=== PATIENT | male | born 1985 | race Caucasian/White ===

== ENCOUNTER 2022-02-05 21:55 | Emergency (ER) | payer BC ==
[~2022-02-05] VITALS: Ht 177.8 cm; Wt 86.2 kg
[~2022-02-05 21:55] MED LIST: OXYC30TA2 PO
--- NOTE | 2022-02-05 22:14 | NUR ---
Dr Tierney at bedside, MSE in progress.
[2022-02-05] MEDS ORDERED: AZITHROMYCIN 250 MG TABLET ONE (22:26)
[2022-02-05] MEDS ORDERED: CEFTRIAXONE 500 MG VIAL ONE (22:26)
[2022-02-05] MEDS ORDERED: ONDANSETRON ODT 4 MG TAB.RAPDIS ONE (22:26)
[2022-02-05] MEDS ORDERED: PENICILLIN G BENZATHINE 2.4 MMU/4 ML DISP.SYRIN IM ONE ×2 (22:27→22:30)
[2022-02-05] MEDS ORDERED: SULFAMETH/TRIMETH 800/160 MG TABLET ONE (22:27)
[2022-02-05] MEDS ORDERED: LIDOCAINE HCL 1% 20 ML VIAL ONE (22:28)
[2022-02-05] MEDS ORDERED: ONDANSETRON ODT 4 MG TAB.RAPDIS SL ONE (22:30)
[2022-02-05] MEDS ORDERED: AZITHROMYCIN 250 MG TABLET PO ONE (22:30)
[2022-02-05] MEDS ORDERED: SULFAMETH/TRIMETH 800/160 MG TABLET PO ONE (22:30)
[2022-02-05] MEDS ORDERED: CEFTRIAXONE 500 MG VIAL IM ONE (22:30)
[2022-02-05] MEDS ORDERED: SULF1TAB48 PO (22:34)
--- NOTE | 2022-02-05 22:56 | NUR ---
Patient discharged to home in stable condition. Written and verbal after care instructions given. Patient verbalizes understanding of instructions. Stressed follow up or return to ER for worsening s/s. pt ambulated with steady gait. denies pain. no SOB. no chest pain. AOx4
[2022-02-05 22:57] VITALS: BP 142/97
== END 2022-02-05 22:57 | disposition home or self-care (01) ==
LOC: ER 21:57
DX: J01.90 Acute sinusitis, unspecified (principal); G89.4 Chronic pain syndrome; K08.89 Other specified disorders of teeth and supporting structures; Z20.2 Contact with and (suspected) exposure to infections with a predominantly sexual mode of transmission; F11.20 Opioid dependence, uncomplicated; R03.0 Elevated blood-pressure reading, without diagnosis of hypertension
CPT/HCPCS: 96372 ×2; 99284; J0561; J0696; J3490; A4663; Q0144; Q0162

== ENCOUNTER 2022-08-08 23:44 | Emergency (ER) | payer BC ==
[~2022-08-08] VITALS: Ht 175.3 cm; Wt 86.2 kg
[~2022-08-08 23:44] MED LIST changes: +SULF1TAB48 PO
[2022-08-09 00:41] VITALS: BP 120/81
--- NOTE | 2022-08-09 00:41 | NUR ---
Patient discharged to home in stable condition. Written and verbal after care instructions given. Patient verbalizes understanding of instructions. Stressed follow up or return to ER for worsening s/s. Patient is a/ox4, NAD noted, able to walk with steady gait
[2022-08-11 07:06] LABS: *GC NAA Negative (Negative)
[2022-08-11 08:06] LABS: *TRIC.VAG. NAA Negative (Negative)
== END 2022-08-09 00:42 | disposition home or self-care (01) ==
LOC: ER 23:50
DX: Z20.2 Contact with and (suspected) exposure to infections with a predominantly sexual mode of transmission (principal); G89.29 Other chronic pain; F11.20 Opioid dependence, uncomplicated
CPT/HCPCS: 87491; A4663

== ENCOUNTER 2023-05-17 13:51 | Emergency (ER) | payer BC, MEDICAID ==
[~2023-05-17] VITALS: Ht 175.3 cm; Wt 86.2 kg
[2023-05-17 14:00] VITALS: O2SAT 97
[2023-05-17] MEDS ORDERED: TETRACAINE HCL 0.5% OPHT DROP 2 ML BOTTLE ONE (14:03)
[2023-05-17] MEDS ORDERED: FLUORESCEIN SODIUM 1 MG STRIP ONE (14:04)
[2023-05-17] MEDS ORDERED: OFLO5DRO3 LEFTEYE (14:10)
[2023-05-17] MEDS ORDERED: TETRACAINE HCL 0.5% OPHT DROP 2 ML BOTTLE OP ONE (14:15)
[2023-05-17] MEDS ORDERED: FLUORESCEIN SODIUM 1 MG STRIP OP ONE (14:15)
== END 2023-05-17 14:29 | disposition home or self-care (01) ==
LOC: ER 13:56
DX: S05.02XA Injury of conjunctiva and corneal abrasion without foreign body, left eye, initial encounter (principal); G89.29 Other chronic pain; Z79.899 Other long term (current) drug therapy; X58.XXXA Exposure to other specified factors, initial encounter; Y93.89 Activity, other specified; Y92.89 Other specified places as the place of occurrence of the external cause; Y99.8 Other external cause status
CPT/HCPCS: A4663

== ENCOUNTER 2023-05-19 20:16 | Emergency (ER) | payer MEDICAID ==
[~2023-05-19] VITALS: Ht 180.3 cm; Wt 86.2 kg
[~2023-05-19 20:16] MED LIST changes: +OFLO5DRO3 LEFTEYE
[2023-05-19] MEDS ORDERED: TETRACAINE HCL 0.5% OPHT DROP 2 ML BOTTLE OP ONE (20:45)
[2023-05-19] MEDS ORDERED: FLUORESCEIN SODIUM 1 MG STRIP OP ONE (20:45)
[2023-05-20 00:16] VITALS: BP 121/71; TEMP 98; O2SAT 98
== END 2023-05-19 22:00 | disposition home or self-care (01) ==
LOC: ER 20:16
DX: S05.02XA Injury of conjunctiva and corneal abrasion without foreign body, left eye, initial encounter (principal); H10.9 Unspecified conjunctivitis; Z79.899 Other long term (current) drug therapy; X58.XXXA Exposure to other specified factors, initial encounter; Y93.89 Activity, other specified; Y92.89 Other specified places as the place of occurrence of the external cause; Y99.8 Other external cause status
CPT/HCPCS: A4663

== ENCOUNTER 2024-09-18 19:32 | Emergency (ER) | payer MEDICAID, OTHER ==
[~2024-09-18] VITALS: Ht 180.3 cm; Wt 86.2 kg
[2024-09-18 20:09] LABS: *BILIRUBIN,URIN NEGATIVE (NEGATIVE); *BLOOD, URINE NEGATIVE (NEGATIVE); *CLARITY,URINE CLEAR (CLEAR); *COLOR,URINE YELLOW (YELLOW); *KETONES,URINE NEGATIVE (NEGATIVE); *PROTEIN,URINE NEGATIVE (NEGATIVE); *UROBILINOGEN,URINE 0.2 E.U./dl (NORMAL); LEUKOCYTE ESTERASE ,URINE NEGATIVE (NEGATIVE); NITRITE, URINE NEGATIVE (NEGATIVE); UGLUCOSE NEGATIVE (NEGATIVE)
[2024-09-18] MEDS ORDERED: DOXY100T2 PO (20:50)
[2024-09-18] MEDS ORDERED: LIDOCAINE HCL 1% 20 ML VIAL ONE (20:53)
[2024-09-18] MEDS ORDERED: DOXYCYCLINE HYCLATE 100 MG TABLET ONE (20:53)
[2024-09-18] MEDS ORDERED: METRONIDAZOLE 500 MG TABLET ONE (20:54)
[2024-09-18] MEDS ORDERED: CEFTRIAXONE 500 MG VIAL ONE (20:54)
[2024-09-18] MEDS: DOXYCYCLINE HYCLATE 100 MG TABLET PO ONE (21:01)
[2024-09-18] MEDS: METRONIDAZOLE 500 MG TABLET PO ONE (21:01)
[2024-09-18] MEDS: CEFTRIAXONE 500 MG VIAL IM ONE (21:01)
[2024-09-18 21:02] VITALS: BP 136/92; O2SAT 97
== END 2024-09-18 21:02 | disposition home or self-care (01) ==
LOC: ER 19:32
DX: N34.2 Other urethritis (principal); F12.90 Cannabis use, unspecified, uncomplicated; Z60.2 Problems related to living alone
CPT/HCPCS: 99283; 81003; 96372; J0696; J3490; A4606; A4663

== ENCOUNTER 2025-05-10 00:05 | Emergency (ER) | payer MEDICAID ==
[~2025-05-10] VITALS: Ht 180.3 cm; Wt 86.2 kg
[~2025-05-10 00:05] MED LIST changes: +DOXY100T2 PO; +LEVO500T90 PO
[2025-05-10 00:09] VITALS: BP 122/77
[2025-05-10] MEDS ORDERED: CEFTRIAXONE 500 MG VIAL ONE (00:22)
[2025-05-10] MEDS ORDERED: DOXYCYCLINE HYCLATE 100 MG TABLET ONE (00:22)
[2025-05-10] MEDS: DOXYCYCLINE HYCLATE 100 MG TABLET PO ONE (00:29)
[2025-05-10] MEDS: CEFTRIAXONE 500 MG VIAL IM ONE (00:29)
[2025-05-10] MEDS ORDERED: DOXY100C5 PO (00:40)
[2025-05-10 00:41] LABS: *BILIRUBIN,URIN NEGATIVE (NEGATIVE); *BLOOD, URINE NEGATIVE (NEGATIVE); *CLARITY,URINE CLEAR (CLEAR); *COLOR,URINE YELLOW (YELLOW); *KETONES,URINE NEGATIVE (NEGATIVE); *PROTEIN,URINE NEGATIVE (NEGATIVE); *UROBILINOGEN,URINE 0.2 E.U./dl (NORMAL); LEUKOCYTE ESTERASE ,URINE NEGATIVE (NEGATIVE); NITRITE, URINE NEGATIVE (NEGATIVE); UGLUCOSE NEGATIVE (NEGATIVE)
[2025-05-10 00:47] VITALS: BP 122/77; TEMP 98; O2SAT 98
[2025-05-12 02:06] LABS: CHLAMYDIA TRACHOMATIS NAA Negative (Negative); NEISSERIA GONORRHOEAE NAA Negative (Negative)
== END 2025-05-10 00:48 | disposition home or self-care (01) ==
LOC: ER 00:19
DX: N34.2 Other urethritis (principal); F11.20 Opioid dependence, uncomplicated; G89.29 Other chronic pain; Z20.2 Contact with and (suspected) exposure to infections with a predominantly sexual mode of transmission; Z60.2 Problems related to living alone
CPT/HCPCS: 99283; 81003; 96372; 87491; 87591; J0696; A4606; A4663

== ENCOUNTER 2025-05-31 23:29 | Emergency (ER) | payer MEDICAID ==
[~2025-05-31] VITALS: Ht 180.3 cm; Wt 86.2 kg
[~2025-05-31 23:29] MED LIST changes: +DOXY100C5 PO
[2025-05-31 23:42] VITALS: BP 137/81
[2025-06-01 00:25] LABS: PLATELET COUNT (AUTO) 205 K/uL (152-348); RED BLOOD CELL COUNT(AUTO) 5.07 MIL/uL (4.06-5.63); RED CELL DISTRIBUTION WIDTH 13.9 % (12.1-16.2); WHITE BLOOD COUNT (AUTO) 6.1 K/uL (3.6-10.2)
[2025-06-01 00:31] LABS: CREATININE 1.0 mg/dL (0.6-1.3); SODIUM SERUM 138.0 mmol/L (136-145); UREA NITROGEN, BLOOD 10.0 mg/dL (7-18)
[2025-06-01 00:36] LABS: ASPARTATE AMINOTRANSFERASE 11.0 U/L (15-37); TOTAL PROTEIN, SERUM 7.6 g/dL (6.4-8.2)
[2025-06-01 01:29] LABS: *BILIRUBIN,URIN 1+ (NEGATIVE); *BLOOD, URINE NEGATIVE (NEGATIVE); *CLARITY,URINE CLEAR (CLEAR); *COLOR,URINE YELLOW (YELLOW); *KETONES,URINE 1+ (NEGATIVE); *PROTEIN,URINE NEGATIVE (NEGATIVE); *UROBILINOGEN,URINE 0.2 E.U./dl (NORMAL); LEUKOCYTE ESTERASE ,URINE NEGATIVE (NEGATIVE); NITRITE, URINE NEGATIVE (NEGATIVE); UGLUCOSE NEGATIVE (NEGATIVE)
[2025-06-01] MEDS ORDERED: PHEN-705 PO (01:43)
[2025-06-01] MEDS ORDERED: AZITHROMYCIN 250 MG TABLET ONE (01:48)
[2025-06-01] MEDS ORDERED: CEFTRIAXONE 500 MG VIAL ONE (01:49)
[2025-06-01] MEDS: CEFTRIAXONE 500 MG VIAL IM ONE (01:58)
[2025-06-01] MEDS: AZITHROMYCIN 250 MG TABLET PO ONE (01:58)
[2025-06-01] MEDS ORDERED: ONDANSETRON ODT 4 MG TAB.RAPDIS ONE (02:05)
[2025-06-01] MEDS: ONDANSETRON ODT 4 MG TAB.RAPDIS SL ONE (02:09)
[2025-06-01 03:15] VITALS: BP 133/80; O2SAT 99
[2025-06-02 16:07] LABS: *CHLAMYDIA NAA Negative (Negative); *GC NAA Negative (Negative); *TRIC.VAG. NAA Negative (Negative)
== END 2025-06-01 02:06 | disposition home or self-care (01) ==
LOC: ER 23:44
DX: N34.2 Other urethritis (principal); G89.29 Other chronic pain; F11.20 Opioid dependence, uncomplicated; R53.83 Other fatigue; Z60.2 Problems related to living alone
CPT/HCPCS: 99283; 80053; 81001; 85025; 87086; 36415; 96372; 87491; J0696; A4606; A4663; Q0144; Q0162